=== PATIENT | male | born 1990 | race Caucasian/White ===

== ENCOUNTER → 2021-10-24 15:11 | Outpatient (BNVA) | payer MEDICAID, SELFPAY | PROVIDERS: Visit Provider Family Medicine | DX: M54.32 Sciatica, left side (principal); G40.909 Epilepsy, unspecified, not intractable, without status epilepticus; Z13.220 Encounter for screening for lipoid disorders; Z13.6 Encounter for screening for cardiovascular disorders; Z76.89 Persons encountering health services in other specified circumstances | CPT/HCPCS: 80053; 80061; 83036; 84439; 84443; 85025 ==

== ENCOUNTER → 2023-04-08 16:44 | Outpatient (BNVA) | payer MEDICAID, SELFPAY | PROVIDERS: PCP Family Medicine; Visit Provider Family Medicine | DX: E83.52 Hypercalcemia (principal); F41.1 Generalized anxiety disorder; F41.0 Panic disorder [episodic paroxysmal anxiety]; F20.0 Paranoid schizophrenia; G40.909 Epilepsy, unspecified, not intractable, without status epilepticus | CPT/HCPCS: 80053; 80061; 82306; 83036; 84443; 85025 ==

== ENCOUNTER → 2023-09-23 16:30 | Outpatient (BNVA) | payer MEDICAID, SELFPAY | PROVIDERS: PCP Family Medicine; Visit Provider Family Medicine | DX: G40.909 Epilepsy, unspecified, not intractable, without status epilepticus (principal); F20.0 Paranoid schizophrenia; F41.1 Generalized anxiety disorder; F41.0 Panic disorder [episodic paroxysmal anxiety]; Z13.220 Encounter for screening for lipoid disorders; Z13.6 Encounter for screening for cardiovascular disorders | CPT/HCPCS: 80053; 80061; 83036; 83721; 84443; 85025 ==

== ENCOUNTER → 2024-04-07 15:59 | Outpatient (BNVA) | payer SELFPAY | PROVIDERS: PCP Family Medicine; Visit Provider Family Medicine | DX: E78.1 Pure hyperglyceridemia (principal); R79.89 Other specified abnormal findings of blood chemistry; F20.0 Paranoid schizophrenia | CPT/HCPCS: 85025 ==